=== PATIENT | male | born 1950 | race Caucasian/White ===

== ENCOUNTER 2019-06-04 01:42 | Emergency (ER) | payer MEDICARE ==
[2019-06-04] MEDS ORDERED: Ibuprofen 800 MG TAB ONE (02:16)
[2019-06-04] MEDS ORDERED: HYDROcodone/Acetaminophen 5/325 mg Tablet ONE (02:32)
--- NOTE | 2019-06-04 06:28 | RAD ---
CHEST 2 VIEWS: Date: 06/04/2019 INDICATION: Chest pain. COMPARISON: None. FINDINGS: There is a calcified granuloma within the right lung base. No consolidation is evident. Heart size is within normal limits. No acute osseous abnormality is noted. IMPRESSION: No acute cardiopulmonary abnormality. POS: [facility]
== END 2019-06-04 02:45 | disposition home or self-care (01) ==
LOC: ERS 01:42
DX: R09.1 Pleurisy (principal); I10 Essential (primary) hypertension; E11.9 Type 2 diabetes mellitus without complications; Z79.84 Long term (current) use of oral hypoglycemic drugs; Z79.899 Other long term (current) drug therapy
CPT/HCPCS: 71046

== ENCOUNTER 2019-06-23 10:23 | Outpatient (CLI) | payer MEDICARE ==
--- NOTE | 2019-06-23 11:16 | ULT ---
GALLBLADDER ULTRASOUND: INDICATION: Right upper quadrant pain. FINDINGS: Gallbladder has a normal sonographic appearance. No evidence of gallstone. The common duct is reggie l caliber. The liver is echogenic suggesting fatty infiltration. The pancreas is obscured. The right kidney is imaged and appears unremarkable. The technologist describes a negative Krishnan's sign. IMPRESSION: 1. Evidence of hepatic steatosis. 2. Unremarkable gallbladder ultrasound. POS: [facility]
== END 2019-06-23 10:24 | disposition home or self-care (01) ==
LOC: BICULT 10:23
PROVIDERS: ATTEND Family Medicine
DX: R10.11 Right upper quadrant pain (principal); K76.0 Fatty (change of) liver, not elsewhere classified
CPT/HCPCS: 76705